=== PATIENT | male | born 2000 | race Caucasian/White ===

== ENCOUNTER 2022-08-15 11:59 | Outpatient (OUT) | payer OTHER, SELFPAY ==
[2022-08-15 13:53] LABS: Thyroid Stimulating Hormone 1.058 uIU/mL (0.358-3.740)
[2022-08-15 14:09] LABS: Free T4 0.95 ng/dL (0.76-1.46)
[2022-08-19 03:09] LABS: Methylmalonic Acid, Serum 186 nmol/L (0-378)
== END 2022-08-15 12:00 ==
LOC: LAB 11:59
PROVIDERS: PCP Internal Medicine
DX: R40.4 Transient alteration of awareness (principal)
CPT/HCPCS: 36415; 82607; 82746; 83921; 84439; 84443

== ENCOUNTER 2024-12-27 11:10 | Outpatient (OUT) | payer OTHER, SELFPAY ==
--- OUTSIDE RECORDS SUMMARY | 2024-12-23 15:48 | XMS_ITS | Encounter Summary ---
Author Organization [facility] tem Address [id number] [address] [place] [address] Care Team Providers Care Attending Psychiatrist Name Role Phone Raghu Mack DO Primary Care Provider [phone] Reason for Visit * ReasonCommentsCold Like SymptomsFatigue, congestion, plugged ears for past week. States symptoms started with sore throat that resolved several days ago. Negative home covid test. * Auth/CertSpecialtyDiagnoses / ProceduresReferred By ContactReferred To Contact [facility] [address] [place] [phone] Phone: tel: fax: Referral IDStatusReasonStart DateExpiration DateVisits RequestedVisits [id number] Encounter Details DateTypeDepartmentCare Team (Latest Contact Info)Styfjwrxxbw16/23/2025 3:48 PM EDT - 12/23/2024 4:22 PM EDTEmergency [facility] [address] [place] [phone] Acute non-recurrent sinusitis, unspecified location (Primary Dx) Discharge Disposition: Home Social History Tobacco UseTypesPacks/DayYears UsedDateSmoking Tobacco: Never AssessedHunger ScreeningAnswerDate RecordedWithin the past 12 months we worried whether our food would run out before we got money to buy more.Never True12/23/2024Within the past 12 months the food we bought just didn't last and we didn't have money to get more.Never True12/23/2024Sex and Gender InformationValueDate RecordedSex Assigned at BirthNot on fileLegal PpoExkp20/23/2025 3:20 PM EDTGender Identity Not on fileSexual OrientationNot on filedocumented as of this encounter Last Filed Vital Signs Vital SignReadingTime TakenCommentsBlood Qxicgaal846/9210 3:33 PM EDT Wgbvx787212/23/2024 3:33 PM ICQEvyqmieyttu87.2 ??C (98.9 ??F)12/23/2024 3:33 PM EDTRespiratory Tbwn8209 3:33 PM EDTOxygen Bcwijmrlan04%12/23/2024 3:33 PM EDTInhaled Oxygen Concentration--Weight--Height--Body Mass Index--documented in this encounter Discharge Instructions * Discharge Instructions* Moe Dixon PA-C - 12/23/2024 4:18 PM EDT You were seen today for your cold like symptoms. Take augmentin as prescribed for your sinus infection. Take Zyrtec and Flonase to help with nasal congestion. Use hot water and honey and Chlorasepticspray to help with sore throat. Use Delsym, Mucinex or Robitussin to help with cough. Follow-up with your doctor as needed. Please return for worsening chest pain, recurrent fainting, bluish coloration of your lips and fingers, coughing up blood, inability to keep down food or fluids, needing to breathe in between words while speaking or any other concerns you may have. * Attachments The following attachments cannot be sent through Care Everywhere. * Sinusitis in adults ??? ED discharge instructions (Thai) documented in this encounter Medications at Time of Discharge MedicationSigDispense QuantityRefillsLast FilledStart DateEnd Date amoxicillin-pot clavulanate (AUGMENTIN) 875-125 mg per tablet Take 1 tablet by mouth every 12 (twelve) hours for 7 days. 14 tablet divalproex sprinkle (DEPAKOTE SPRINKLE) 125 mg capsule Take 1 capsule (125 mg total) by mouth in the morning and 1 capsule (125 mg total) before bedtime.documented as of this encounter ED Notes * Moe Dixon PA-C - 12/23/2024 3:51 PM EDT Images from the original note were not included. [facility] Pt Name: Kirill Painter Birthdate: 2000 Chief Complaint: Chief Complaint Patient presents with Cold Like Symptoms Fatigue, congestion, plugged ears for past week. States symptoms started with sore throat that resolved several days ago. Negative home covid test. History of Present Illness: 24-year-old male presenting to the ED for evaluation of cold-like symptoms. Patient reports that over last week he has had sinus pressure and congestion with associated plugged ears. Patient reports that he also had a sore throat previously that has since resolved. He has been using Vicks and taking DayQuil at home for symptoms. He took a COVID test at home which was negative. Denies associated chest pain. Denies vomiting or diarrhea. Past Medical History: Past Medical History: Diagnosis Date Headache Past Surgical History: No past surgical history on file. Family History: No family history on file. Social History: Social History Socioeconomic History Marital status: Social Drivers of Health Food Insecurity: No Food Insecurity (12/23/2024) Hunger Screening Food Insecurity - Worry: Never True Food Insecurity - Inability: Never True Review of Systems: Review of Systems Physical Exam: ED Triage Vitals [12/23/24 1533] Temp Heart Rate Resp BP SpO2 37.2 ??C (98.9 ??F) 91 16 (!) 129/92 99 % Temp src Heart Rate Source Patient Position BP Location FiO2 (%) -- Radial;Pulse Ox -- -- -- Vitals: 12/23/24 1533 BP: (!) 129/92 Temp: 37.2 ??C (98.9 ??F) Pulse: 91 Resp: 16 SpO2: 99% Physical Exam Vitals reviewed. HENT: Head: Normocephalic and atraumatic. Right Ear: Tympanic membrane, ear canal and external ear normal. Left Ear: Tympanic membrane, ear canal and external ear normal. Eyes: Conjunctiva/sclera: Conjunctivae normal. Cardiovascular: Rate and Rhythm: Normal rate. Pulmonary: Effort: Pulmonary effort is normal. Breath sounds: Normal breath sounds. Abdominal: General: There is no distension. Palpations: Abdomen is soft. Musculoskeletal: General: Normal range of motion. Cervical back: Normal range of motion and neck supple. Skin: General: Skin is warm and dry. Neurological: General: No focal deficit present. Mental Status: He is alert and oriented to person, place, and time. GCS: GCS eye subscore is 4. GCS verbal subscore is 5. GCS motor subscore is 6. Procedure: Procedures Re-evaluation: Re-Evaluation Medical Decision Making 24-year-old male presenting to the ED for evaluation of cold-like symptoms. Patient has been dealing with sinus pain and pressure over last week. Reports history of sinus infection in the past. Reports associated bilateral plugged ears. Patient will be treated with Augmentin for suspected sinusitis. He was given ED return precautions and advised to follow up with his PCP. Patient stable upon discharge. Risk Prescription drug management. ED Course: Clinical Impressions as of 12/23/24 1619 Acute non-recurrent sinusitis, unspecified location . ED Disposition ED Disposition Discharge Date/Time Quiana Dec 23, 2024 4:17 PM Comment At the time of discharge, the plan has been discussed with the patient regarding the diagnosis and prognosis. All questions have been answered. Verbal discharge instructions were discussed with the patient. The patient has been advised to follow up w ith their Primary Care Provider as needed. The patient was also instructed to return to the ED if their symptoms change, worsen, new symptoms arise or if they have any additional concerns. Medications Prescribed this Visit Sig amoxicillin-pot clavulanate (AUGMENTIN) 875-125 mg per tablet Take 1 tablet by mouth every 12 (twelve) hours for 7 days. OZ Supervision Only Supervising Physician was Dr. Lexy Carrasco Please note that portions of this note were completed with a voice recognition program. Efforts were made to edit the dictations but occasionally words are mis-transcribed. Moe Dixon PA-C 12/23/24 1551 Moe Dixon PA-C 12/23/24 1619 documented in this encounter Plan of Treatment Not on file documented as of this encounter Visit Diagnoses Diagnosis Acute non-recurrent sinusitis, unspecified location- Primary documented in this encounter Care Teams Team MemberMonsehipSpecialtyStart DateEnd Date Raghu Mack DO [address] [place] [address] PCP - GeneralInternal Nxjoynds39/23/25documented as of this encounter
--- OUTSIDE RECORDS SUMMARY | 2024-12-27 11:16 | XMS_ITS | Encounter Summary ---
[facility] tem Address [id number] [address] [place] [address] Care Team Providers Care Water Taxi Captain Name Role Phone Raghu Mack DO Primary Care Provider [phone] Encounter Details DateTypeDepartmentCare Team (Latest Contact Info)Xmteirdbyzm38/23/2025Travel Social History Tobacco UseTypesPacks/DayYears UsedDateSmoking Tobacco: Never AssessedHunger ScreeningAnswerDate RecordedWithin the past 12 months we worried whether our food would run out before we got money to buy more.Never True12/23/2024Within the past 12 months the food we bought just didn't last and we didn't have money to get more.Never True12/23/2024Sex and Gender InformationValueDate RecordedSex Assigned at BirthNot on fileLegal VdpAdrl34/23/2025 3:20 PM EDTGender Identity Not on fileSexual OrientationNot on filedocumented as of this encounter Plan of Treatment Not on file documented as of this encounter Visit Diagnoses Not on filedocumented in this encounter Care Teams Team MemberRelationshipSpecialtyStart DateEnd Date Raghu Mack DO [address] [place] [address] PCP - GeneralInternal Ngvqzyai00/23/25documented as of this encounter
--- OUTSIDE RECORDS SUMMARY | 2024-12-27 11:16 | XMS_ITS | Clinical Summary ---
Author Organization [facility] tem Address [id number] [address] [place] [address] Care Team Providers Care 3Rd Grade Reading Teacher Name Role Phone Raghu Mack DO Primary Care Provider [phone] Allergies No known active allergies Medications MedicationSigDispense QuantityRefillsLast FilledStart DateEnd DateStatus divalproex sprinkle (DEPAKOTE SPRINKLE) 125 mg capsule Take 1 capsule (125 mg total) by mouth in the morning and 1 capsule (125 mg total) before bedtime.Active amoxicillin-pot clavulanate (AUGMENTIN) 875-125 mg per tablet Take 1 tablet by mouth every 12 (twelve) hours for 7 days. 14 tablet 5Active Encounters DateTypeDepartmentCare KymbSmpxwprnibc66/23/2025 3:48 PM EDT - 12/23/2024 4:22 PM EDTEmergency [facility] [address] [place] [phone] Acute non-recurrent sinusitis, unspecified location (Primary Dx) Discharge Disposition: Home12/23/2024Travelfrom Last 3 Months Social History Tobacco UseTypesPacks/DayYears UsedDateSmoking Tobacco: Never AssessedHunger ScreeningAnswerDate RecordedWithin the past 12 months we worried whether our food would run out before we got money to buy more.Never True12/23/2024Within the past 12 months the food we bought just didn't last and we didn't have money to get more.Never True12/23/2024Sex and Gender InformationValueDate RecordedSex Assigned at BirthNot on fileLegal IccLeoi85/ 3:20 PM EDTGender Identity Not on fileSexual OrientationNot on file Last Filed Vital Signs Vital SignReadingTime TakenCommentsBlood Xfgykphb181/9210 3:33 PM EDT Qokbv659112/23/2024 3:33 PM IEJOuwjkyjweni79.2 ??C (98.9 ??F)12/23/2024 3:33 PM EDTRespiratory Mdok2829 3:33 PM EDTOxygen Uksghgebmj70%12/23/2024 3:33 PM EDTInhaled Oxygen Concentration--Weight--Height--Body Mass Index-- Plan of Treatment Not on file Medical Devices Not on file Insurance Care Teams Team MemberRelationshipSpecialtyStart DateEnd Date Raghu Mack DO [address] [place] [address] PCP - GeneralInternal Mlabbhbh46/23/25
--- OUTSIDE RECORDS SUMMARY | 2024-12-27 11:17 | XMS_ITS | Clinical Summary ---
Author Organization [facility] Address [address] [place] [address] Care Team Providers Care Senior Technical Trainer Name Role Phone Raghu Mack Primary Care Provider [phone] Allergies No known active allergies Medications MedicationSigDispense QuantityRefillsLast FilledStart DateEnd DateStatus citalopram (CeleXA) 20 MG tablet Take 20 mg by mouth Daily4Active OXcarbazepine (Trileptal) 300 MG tablet Take 300 mg by mouth at qvlutrt24/10/2023Active divalproex (Depakote) 250 MG EC tablet Indications:Migraine, unspecified, not intractable, without status migrainosus TAKE 1 TABLET (250 MG) BY MOUTH AT BEDTIME 30 tablet 5Active atomoxetine (Strattera) 25 MG capsule Indications:Attention deficit hyperactivity disorder (ADHD), predominantly inattentive typeTAKE 1 CAPSULE BY MOUTH ONCE A DAY *DO NOT OPEN* 21 capsule 5Active Active Problems ProblemNoted DateDiagnosed DateHemiplegic migraine without status migrainosus, not jneiucvuxxr37/02/2024Generalized anxiety ctpfchgo38/02/2024Migraine 09/02/2023 Overview (11/27/2023): The patient is a 22 year old male who presented with headaches manifested as left retro-orbital sharp pain which lasts hours and is preceded by impairment in his vision, which begins on the left and transitions through his right visual field. The patient states that these headaches respond to ccjf-trf-kkmpbnk medications including Tylenol and nonsteroidal anti-inflammatory medications. The patient has had headaches since age 9. The patient states the vision abnormalities occur with each headache. The patient has had 1 episode of paresthesia on the left side of the body, which was then followed by his typical migraine likely due to a complicated migraine. The patient has headaches most consistent with migraine with aura. 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 The patient had a CTA of the head and neck that was normal. Cervical spine MRI from 02/13/2021 was unremarkable. He has intermittent headaches that are successfully aborted with OTC medications. He has responded well to depakote. Trileptal was weaned as it became ineffective and was limited due to fatigue. Overall headaches are stable Vision lcoobwqxvsa75/02/2024omplicated rwxyilsg26/02/2024Hyperreflexia 09/02/2023ifficulty xahdzzslpblhq32/02/2024 Overview (11/27/2023): Neuropsychological testing on 12/19/22 showed mild depression and anxiety with elevated ADHD, symptom report. Recommendations for trial of treatment for ADHD. See above ADHD (attention deficit hyperactivity disorder)09/02/2023 Family History Medical HistoryRelationNameCommentsDiabetesFatherRelationNameStatusComments Father Social History Tobacco UseTypesPacks/DayYears UsedDateSmoking Tobacco: NeverSmokeless Tobacco: Never Tobacco Cessation:Counseling Given: Not Answered Alcohol UseStandard Drinks/WeekCommentsNot Currently3 (1 standard drink = 0.6 oz pure alcohol)caffeine 1-2 cups per daySex and Gender InformationValueDate RecordedSex Assigned at BirthNot on fileLegal OylGcju8005/15/2022 7:13 PM EDT Gender IdentityNot on fileSexual OrientationNot on file Last Filed Vital Signs Vital SignReadingTime TakenCommentsBlood Dgixdpzz834/8804 8:07 AM EDT Aprbq0294 2:45 PM EDTTemperature--Respiratory Rate--Oxygen Saturation-- Inhaled Oxygen Concentration--Eobrvu84.6 kg (213 lb)06/23/2024 8:07 AM EDTHeight 188 cm (6' 2 )06/23/2024 8:07 AM EDTBody Mass Index27.35006/23/2024 8:07 AM EDT Plan of Treatment Health MaintenanceDue DateLast DoneCommentsInfluenza Vaccine (#1)11/01/2024 12/08/2023, 12/25/2022, 12/19/2021, Additional history exists Insurance * Guarantor: Kirill Stack TypeRelation to PatientDate of BirthPhone Billing AddressPersonal/NzkeprAscb81/31/2001 [address] [phone] Care Teams Team MemberRelationshipSpecialtyStart DateEnd Date Raghu Mack DO [address] [place] [phone] PCP - GeneralInternal Medicine05/21/23
[2024-12-27 11:37] LABS: Hematocrit 46.0 % (42.0-54.0); Hemoglobin 15.6 g/dL (14.0-18.0); Immature Granulocytes Abs Auto 0.10 10^3/uL (0.00-0.03); Immature Granulocytes Pct Auto 1.1 % (0.0-0.5); Lymphocytes Absolute Auto 2.2 10^3/uL (1.2-3.8); Mean Corpuscular HGB Conc 33.9 g/dL (29.9-35.2); Mean Corpuscular Hemoglobin 28.7 pg (25.9-34.0); Mean Corpuscular Volume 84.6 fL (80.0-94.0); Platelet Count 328 10^3/uL (150-450); Red Blood Count 5.44 10^6/uL (4.70-6.10); White Blood Count 9.3 10^3/uL (4.0-11.0)
[2024-12-27 12:05] LABS: Alanine Aminotransferase 28 U/L (16-63); Albumin Globulin Ratio 1.0; Albumin Level 3.9 g/dL (3.4-5.0); Alkaline Phosphatase 57 U/L (46-116); Anion Gap 10.9; Aspartate Amino Transferase 16 U/L (15-37); Blood Urea Nitrogen 12.0 mg/dL (7.0-18.0); Calcium 9.0 mg/dL (8.5-10.1); Carbon Dioxide 30.3 mmol/L (21.0-32.0); Chloride 103 mmol/L (98-107); Cholesterol 148 mg/dL (<=200); Estimated GFR (African America >60 (>=60 mL/min/1.73m^2); Estimated GFR (Non-African Ame >60 (>=60 mL/min/1.73m^2); Globulin 3.9 g/dL; Glucose 92 mg/dL (74-106); HDL Cholesterol 46 mg/dL (40-60); Potassium 4.2 mmol/L (3.5-5.1); Sodium 140 mmol/L (136-145); Total Protein 7.8 g/dL (6.4-8.2); Triglycerides 40 mg/dL (<=150); VLDL CHOLESTEROL 8.0 mg/dL
== END 2024-12-27 11:11 | disposition home or self-care (01) ==
PROVIDERS: PCP Internal Medicine; Visit Provider Internal Medicine
DX: Z00.00 Encounter for general adult medical examination without abnormal findings (principal)
CPT/HCPCS: 36415; 80053; 80061; 85025